=== PATIENT | female | born 1980 | race African-American/Black ===

== ENCOUNTER 2017-02-28 12:22 | Emergency (ER) | payer MEDICAID, OTHER ==
[~2017-02-28] VITALS: Ht 167.6 cm; Wt 54.1 kg
[~2017-02-28 12:22] MED LIST: NUVA RING; PROV2.5 PO
[2017-02-28 13:07] VITALS: BP 145/90
[2017-02-28 17:58] LABS: HEMATOCRIT 41.4 % (36-46); HEMOGLOBIN 13.6 g/dL (12.0-16.0); MEAN CORPUSCULAR HGB CONC 32.9 G/dL (31.0-37.0); MEAN CORPUSCULAR VOLUME 97 fL (80-100); PLATELET COUNT (AUTO) 231 K/uL (150-450); RED BLOOD CELL COUNT(AUTO) 4.26 MIL/uL (4.00-5.20); RED CELL DISTRIBUTION WIDTH 13.5 % (11.5-14.5)
[2017-02-28 18:23] LABS: ANION GAP 10 mmol/L (8-16); CALCIUM, TOTAL 9.4 mg/dL (8.8-10.5); CARBON DIOXIDE 30 mmol/L (22-29); CHLORIDE 102 mmol/L (98-107); CREATININE 0.89 mg/dL (0.60-1.30); GLOMERULAR FILTR. RATE CALC > 60 mL/min (>60); GLUCOSE,RANDOM 86 mg/dL (70-110); POTASSIUM 3.6 mmol/L (3.5-5.1); SODIUM SERUM 142 mmol/L (136-145); UREA NITROGEN, BLOOD 10 mg/dL (7-18)
[2017-02-28 18:42] LABS: BAND NEUTROPHILS % (MANUAL) 3 % (1-5); BASOPHILS % (MANUAL) 1 % (0-2); EOSINOPHILS % (MANUAL) 1 % (1-6); LYMPHOCYTES % (MANUAL) 35 % (22-44); MONOCYTES % (MANUAL) 13 % (2-9); SEGMENTED NEUTROPHILS % 47 % (40-70)
== END 2017-02-28 19:14 | disposition home or self-care (01) ==
LOC: EMS 12:24
DX: M54.6 Pain in thoracic spine (principal); R03.0 Elevated blood-pressure reading, without diagnosis of hypertension; F12.90 Cannabis use, unspecified, uncomplicated; F17.200 Nicotine dependence, unspecified, uncomplicated
CPT/HCPCS: 71046; 85379; 99285